=== PATIENT | male | born 2000 | race Caucasian/White ===

== ENCOUNTER 2021-10-24 07:38 | Outpatient (CLI) | payer OTHER, SELFPAY ==
--- NOTE | 2021-10-30 15:17 | WPDHOMESLEEP ---
Sleep Study - Home Unattended Date of Study: 10/24/21 Ordering Provider: Leah Mccray DO Interpreting Provider: Leah Mccray DO Home Sleep Study Type: Apnea Link Air Height: 1.88 m Weight: 113.398 kg Body Mass Index: 32.1 Neck Circumference (inches): 16.5 [place]: 7 Reason for Sleep Study Unrefreshing sleep, daytime hypersomnia, Morning headaches Sleep History The patient is a 21-year-old male that had a home sleep test ordered by his primary care physician due to unrefreshing sleep and daytime hypersomnia. 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 The patient's father and grandfather both have sleep apnea and uses CPAP. The patient denies awakening from sleep short of breath. He denies awakening at night with heartburn, belching or cough. He constantly snores loud enough that others complain. He rarely has trouble sleeping when he has a cold. He denies waking up gasping for air throughout the night. He constantly has breathing problems at night observed by others. He occasionally sweats excessively at night. He denies noticing heart palpitations or irregular heartbeats during the night. He rarely falls asleep during the day and never while driving. He denies sleep paralysis and cataplexy. He rarely experiences vivid dreamlike scenes upon awakening or falling asleep. He denies having nightmares. He rarely feels sad or depressed. He rarely has anxiety. He denies noticing parts of his body jerk. He denies kicking during the night. He occasionally has crawling and aching feelings in his legs as well as leg pain during the night. He denies grinding his teeth during sleep awakening with any jaw pain. He occasionally is bothered by pain during the day but rarely awakened by pain during the night. He occasionally wakes up feeling stiff in the morning with sore or achy muscles. He occasionally wakes up with pain in the neck, spine or other joints. He goes to bed at 10:30 p.m. a weekdays and 11:30 p.m. on the weekends. It takes him 10-30 minutes to fall asleep. He wakes up 2-3 times per night to urinate, turn on the fan or move to the couch. He is able to fall back asleep within 10 minutes. He wakes up between 5 and 6:00 a.m. on weekdays and between 6 and 7:00 a.m. on the weekends. He typically gets between 7 and 8 hours of sleep per night. He will not stay in bed after waking up in the morning. He currently lives with his girlfriend. He denies consuming any caffeinated beverages within 2 hours of bedtime. He does not engage in physical exercise before bedtime. He will watch television before falling asleep. He does not take naps in the afternoon or the evening. He currently smokes cigars and vapes as well as using marijuana. He does consume alcohol. [facility] Past Medical History Medical History (Updated 10/30/21 @ 15:32 by Leah Mccray DO) Morning headache Surgical History Surgical History (Updated 08/09/21 @ 14:57 by Rhoda Montiel CMA) History of appendectomy 2019 Family History Family History (Updated 08/09/21 @ 14:58 by Rhoda Montiel CMA) Sibling Depression Grandparent Alcoholism Diabetes mellitus Heart disease Social History Social History (Updated 08/09/21 @ 15:03 by Rhoda Montiel CMA) Smoking status: Current every day smoker Tobacco type: cigars and e-cigarettes/vaping Alcohol intake: current Substance use: current Substance use type: marijuana Medications Home Medications Medication Instructions Recorded Confirmed Type No Home Medications 08/09/21 History Sleep Procedure This test was performed using 4 channel monitoring including respiratory effort channel, snoring channel, heart rate channel, and oxygen saturation channel. This study was scored using [facility] guidelines. Sleep Architecture The patient had a total recording time of 8 hours 10 minutes and total monitoring time of 7 hours 35 minutes. The patient spent 6 hours 17 minut
[2021-10-30 15:33] VITALS: BMI 32.1
== END 2021-10-25 12:01 | disposition home or self-care (01) ==
LOC: ANHCSM 07:38
PROVIDERS: PCP Family Medicine; Visit Provider Family Medicine
DX: R06.83 Snoring (principal); G47.33 Obstructive sleep apnea (adult) (pediatric)
CPT/HCPCS: 95806

== ENCOUNTER 2022-11-24 07:19 | Outpatient (CLI) | payer OTHER, SELFPAY ==
[2022-11-24 08:10] LABS: Basophils Percent Auto 0.8 % (0.2-1.2); Eosinophils Absolute Auto 0.2 K/mm3 (0-0.3); Eosinophils Percent Auto 5.5 % (0-4.4); Hematocrit 46.1 % (42.0-52.0); Hemoglobin 15.6 g/dL (14.0-18.0); Immature Granulocyte Absolute 0.04 K/mm3 (0.00-0.031); Lymphocytes Absolute Auto 1.43 K/mm3 (0.9-3.2); Lymphocytes Percent Auto 37.5 % (18.3-44.2); Mean Corpuscular HGB Conc 33.8 g/dl (32-36); Mean Corpuscular Hemoglobin 29.1 pg (26-34); Mean Corpuscular Volume 85.8 fl (80-100); Mean Platelet Volume 10.8 fl (7.4-10.4); Monocytes Absolute Auto 0.3 K/mm3 (0.1-0.6); Monocytes Percent Auto 8.9 % (2.6-8.5); Neutrophils Absolute Auto 1.8 K/mm3 (1.3-6.7); Neutrophils Percent Auto 46.3 % (45.5-73.1); Platelet Count Result 264 k/mm3 (150-375); Red Blood Count 5.37 M/mm3 (4.6-6.20); Red Cell Distribution Width 12.3 % (11.5-14.5); White Blood Count 3.8 K/mm3 (4.5-10.0)
[2022-11-24 08:11] LABS: Hemoglobin A1C 5.4 % (<5.7)
[2022-11-24 08:13] LABS: Alanine Aminotransferase 64 U/L (6-50); Albumin Level 4.6 g/dL (3.5-5.1); Alkaline Phosphatase 66 U/L (38-126); Anion Gap 8 mmol/L (8-16); Aspartate Amino Transferase 44 U/L (17-59); Bilirubin,Total 0.8 mg/dL (0.2-1.3); Blood Urea Nitrogen 12 mg/dL (9-20); Calcium 9.1 mg/dL (8.4-10.2); Carbon Dioxide 27 mmol/L (22-30); Chloride 104 mmol/L (98-107); Cholesterol 221 mg/dL (0-200); Estimated Glomerular Filt Rate > 60; Glucose 104 mg/dL (65-110); HDL Direct 57 mg/dL; Potassium 4.3 mmol/L (3.4-5.0); Sodium 139 mmol/L (137-145); Triglycerides 75 mg/dL (<150)
[2022-11-24 08:24] LABS: LDL Cholesterol Direct 121 mg/dL
[2022-11-24 14:20] LABS: Free T4 Free Thyroxine 1.02 ng/mL (0.78-2.19); Vitamin D 25 Hydroxy 49.4 ng/mL
== END 2022-11-24 07:20 | disposition home or self-care (01) ==
PROVIDERS: PCP Family Medicine; Visit Provider Family Medicine
DX: E55.9 Vitamin D deficiency, unspecified (principal); R53.83 Other fatigue; R73.9 Hyperglycemia, unspecified; Z13.220 Encounter for screening for lipoid disorders
CPT/HCPCS: 36415; 80053; 80061; 82306; 83036; 84439; 84443; 85025

== ENCOUNTER 2023-02-15 15:57 | Emergency (ER) | payer OTHER, SELFPAY ==
--- NOTE | ~2023-02-15 | XR_ITS ---
EXAM: XR hand RT min 3V DATE: 02/15/2023 16:16 HISTORY: Laceration to palmar surface of right hand. R/O FB . COMPARISON: None available. FINDINGS: Normal mineralization. No fracture or dislocation. No lytic or blastic lesion. Joint space s are maintained. No erosion or periosteal change. Soft tissues within normal limits. IMPRESSION: No acute osseous finding in the right hand. Reviewed, dictated and finalized at location K.
--- NOTE | 2023-02-15 16:03 | ED.WOUNDLAC ---
HPI - Wound/Laceration General Chief Complaint: Wound/Laceration Stated Complaint: cut hand Time Seen by Provider: 02/15/23 16:02 Source: patient Mode of arrival: ambulatory Limitations: no limitations History of Present Illness HPI narrative: Tra is a 23-year-old male patient presenting presenting to the clinic today with complaints of a puncture wound/laceration to the right hand. He reports he cut his hand on a ground heron (piece of rebar) while at work. Bleeding is controlled. Has flap laceration to the volar aspect of the right hand and a puncture wound to the dorsal hand. Patient feels as though he is going to pass out and is diaphoretic and pale at the time of her arrival. Related Data Allergies Allergy/AdvReac Type Severity Reaction Status Date / Time No Known Allergies Allergy Verified 02/15/23 16:19 Review of Systems Review of Systems: Pertinent positives per HPI. Patient denies any fever, chills, rash, headache, visual changes, dizziness, cough, runny nose, sore throat, shortness of breath, chest pain, palpitations, nausea, vomiting, diarrhea, constipation, abdominal pain, or any urinary issues. [facility] Past Medical History Medical History Morning headache Surgical History Surgical History History of appendectomy 2019 Family History Family History Sibling Depression Grandparent Alcoholism Diabetes mellitus Heart disease Cerebrovascular accident Social History Social History Smoking status: Former smoker Tobacco type: cigarettes, cigars and e-cigarettes/vaping Smoking end date: 10/31/22 Alcohol intake: current Substance use: never Lack of Transportation: No Lack of Food: Never True Current Housing: I Have Housing Concerned About Future Housing: No Difficulty Paying Gas/Electric Bills: No Difficulty Paying for Meds: No Currently Unemployed: No Education: High School Diploma/GED Difficulty w/ Childcare or Family Care: No Comments At the time of my signature, I reviewed and agree with the nursing past medical, surgical, social, and family history. There is no relevant family history pertinent to the patient complaint. Exam Narrative: General: Well-developed, well nourished, in no apparent distress Head: Normocephalic, atraumatic. Cardio: Regular rate and rhythm, s1 and s2 normal, no murmur appreciated. Resp: Clear to auscultation bilaterally, no rhonchi, rales, wheezing or rubs. Musculoskeletal: No deformity, tender to palpation over the webbing in between the right thumb and index finger on the right hand, grossly normal range of motion of thumb and index finger, able to flex and extend against resistance without weakness, muscle strength strong and equal, peripheral pulse strong, no edema, no cyanosis, normal gait and station Integumentary: Bridger, warm, and dry, open puncture/flap laceration to the volar aspect of the right hand in between the right thumb and index finger measuring 2x2 and 1.5 cm vertical laceration dorsal laceration Course Course Emergency Course: Portions of this record may have been created with voice recognition software. Level of Care: Express Care Visit Vital Signs Vital signs: Vital signs reviewed Procedures Laceration Laceration 1: Date: 02/15/23 Site: hand Side (If applicable): right (dorsal) Size (cm): 1.5 Description: linear Depth: simple, single layer Local Anesthetic: lidocaine 2% Amount of anesthesia used (mL): 2 Pre-repair: wound explored, irrigated and irrigated extensively ====== Skin Level ====== Skin layer closed with: nylon Size (cm): 4-0 Number of sutures: 3 Technique: simple
[2023-02-15 16:16] VITALS: BP 139/61; PULSE 87; RESP 18; O2SAT 100
[2023-02-15] MEDS: TETANUS,DIPHTHERIA,AC PERTUSSIS ADULT (0.5 ML) BOOSTRIX IM (16:34)
== END 2023-02-15 17:28 | disposition home or self-care (01) ==
PROVIDERS: Emergency Provider Nurse Practitioner Family; PCP Family Medicine
DX: S61.411A Laceration without foreign body of right hand, initial encounter (principal); W45.8XXA Other foreign body or object entering through skin, initial encounter; F17.210 Nicotine dependence, cigarettes, uncomplicated; F17.290 Nicotine dependence, other tobacco product, uncomplicated; Z23 Encounter for immunization
CPT/HCPCS: 12002; 73130; 90471; 90715; 99213; G0463

== ENCOUNTER 2023-05-20 08:50 | Emergency (ER) | payer OTHER, SELFPAY ==
--- NOTE | 2023-05-20 08:54 | ED.EAR ---
HPI - Ear Problem General Chief complaint: Ear Stated complaint: Ear infection Time Seen by Provider: 05/20/23 08:54 Source: patient Mode of arrival: ambulatory Limitations: no limitations History of Present Illness HPI Narrative: Patient is a 23-year-old male who presents with almost a month of bilateral ear pain. Patient has been taking Zyrtec and Claritin with only mild relief of symptoms. Denies any congestion, sore throat, cough, fever, chills, nausea, vomiting, diarrhea. MD Complaint: ear pain Related Data Allergies Allergy/AdvReac Type Severity Reaction Status Date / Time No Known Allergies Allergy Verified 05/20/23 08:53 Review of Systems Review of Systems: All systems reviewed & are unremarkable except as noted in HPI and below Constitutional: Constitutional: Denies body ache(s), Denies chills, Denies fever(s), Denies headache(s) and Denies malaise Eyes: Eyes: Denies blurry vision, Denies eye discharge and Denies irritation ENT: Reports otalgia, Denies headache(s), Denies nasal congestion, Denies nasal discharge and Denies sore throat Cardiovascular: Cardiovascular: Denies chest pain, Denies edema, Denies palpitations and Denies dyspnea on exertion Respiratory: Respiratory: Denies cough and Denies dyspnea on exertion Gastrointestinal: Gastrointestinal: Denies abdominal pain, Denies diarrhea, Denies nausea and Denies vomiting Musculoskeletal: Musculoskeletal: Denies back pain, Denies arthralgias and Denies muscle weakness Integumentary/Breasts: Skin/Breast: Denies pruritus and Denies rash Neurologic: Denies headache(s) Psychiatric: Psychiatric: Reports no additional psychiatric complaints Endocrine: Endocrine: Denies palpitations PMFSH Past Medical History Medical History Morning headache Surgical History Surgical History History of appendectomy 2019 Family History Family History Sibling Depression Grandparent Alcoholism Diabetes mellitus Heart disease Cerebrovascular accident Social History Social History Smoking status: Former smoker Tobacco type: cigarettes, cigars and e-cigarettes/vaping Smoking end date: 10/31/22 Alcohol intake: current Substance use: never Lack of Transportation: No Lack of Food: Never True Current Housing: I Have Housing Concerned About Future Housing: No Difficulty Paying Gas/Electric Bills: No Difficulty Paying for Meds: No Currently Unemployed: No Education: High School Diploma/GED Difficulty w/ Childcare or Family Care: No Comments At time of signature, agree with nursing past medical, surgical, social and family history. There is no relevant family history pertinent to the presenting complaint? Exam Const: General: cooperative, healthy appearing, no acute distress and well nourished Nutritional Appearance: well nourished Orientation/consciousness: patient oriented x3 Limitations: no limitations HENMT: Head: normal to inspection, normocephalic and atraumatic Ears: hearing grossly normal bilaterally, TM normal on the left, EAC's normal, no periauricular adenopathy and TM abnormal bulging on the right and erythematous on the right Face/Nose/Sinus: Normal external nose present, Normal nares present, Normal nasal mucous membranes and turbinates present, No nasal discharge present, normal facial exam and sinuses nontender Face and sinus: normal facial exam and sinuses nontender Mouth: Yes Normal oral and palatal mucosa present, Yes lip normal, Yes tongue normal and Yes moist mucous membranes Throat: posterior oropharynx normal, tonsils normal and uvula midline Eyes: General: appearance normal, both eyes and all related structures Alignment and Position: alignment normal and position normal Eyelids: eyelids
[2023-05-20 08:58] VITALS: BP 131/86; PULSE 78; RESP 16; TEMP 36.5; O2SAT 99
== END 2023-05-20 09:07 | disposition home or self-care (01) ==
PROVIDERS: Emergency Provider Nurse Practitioner Family; PCP Family Medicine
DX: H66.001 Acute suppurative otitis media without spontaneous rupture of ear drum, right ear (principal); Z87.891 Personal history of nicotine dependence
CPT/HCPCS: 99213; G0463

== ENCOUNTER 2023-06-10 08:04 | Emergency (ER) | payer OTHER, SELFPAY ==
--- NOTE | 2023-06-10 08:17 | ED.EAR ---
HPI - Ear Problem General Chief complaint: Ear Stated complaint: Ear Infection Time Seen by Provider: 06/10/23 08:20 Source: patient Mode of arrival: ambulatory Limitations: no limitations History of Present Illness HPI Narrative: Tra is a 23-year-old male patient presenting to the clinic today with complaints of right-sided ear pain since the beginning of May. He reports he finished amoxicillin on May 31 however he is still having ear pain and decreased hearing in the right ear. He denies any fever or chills. Related Data Allergies Allergy/AdvReac Type Severity Reaction Status Date / Time No Known Allergies Allergy Verified 06/10/23 08:10 Review of Systems Review of Systems: Pertinent positives per HPI. Patient denies any fever, chills, rash, headache, visual changes, dizziness, cough, runny nose, sore throat, shortness of breath, chest pain, palpitations, nausea, vomiting, diarrhea, constipation, abdominal pain, or any urinary issues. PMFSH Past Medical History Medical History Morning headache Surgical History Surgical History History of appendectomy 2019 Family History Family History Sibling Depression Grandparent Alcoholism Diabetes mellitus Heart disease Cerebrovascular accident Social History Social History Smoking status: Former smoker Tobacco type: cigarettes, cigars and e-cigarettes/vaping Smoking end date: 10/31/22 Alcohol intake: current Substance use: never Lack of Transportation: No Lack of Food: Never True Current Housing: I Have Housing Concerned About Future Housing: No Difficulty Paying Gas/Electric Bills: No Difficulty Paying for Meds: No Currently Unemployed: No Education: High School Diploma/GED Difficulty w/ Childcare or Family Care: No Comments At the time of my signature, I reviewed and agree with the nursing past medical, surgical, social, and family history. There is no relevant family history pertinent to the patient complaint. Exam Narrative: General: Well-developed, well nourished, in no apparent distress Head: Normocephalic, atraumatic Eyes: Pupils equally round and reactive to light bilaterally, EOM intact, sclera and conjunctive clear, no discharge, lids normal Ears: Left tMs intact and clear, right TM intact, bulging, red, left ear canal clear, right ear canal swollen red, with white otorrhea, decreased hearing in the right ear Nose: Nares patent, no discharge, no inflammation, no sinus tenderness. Mouth: Oropharynx without lesions or masses, good dentition, MMM. Neck: Supple, trachea midline, no enlargement of anterior or posterior cervical nodes, no thyroid masses or goiter palpable. Cardio: Regular rate and rhythm, s1 and s2 normal, no murmur appreciated. Resp: Clear to auscultation bilaterally anteriorly and posteriorly, no rhonchi, rales, wheezing or rubs Course Course Emergency Course: Portions of this record may have been created with voice recognition software. Level of Care: Express Care Visit Vital Signs Vital signs: Vital Signs Temperature 36.6 C 06/10/23 08:19 Pulse Rate 69 06/10/23 08:19 Respiratory Rate 16 06/10/23 08:19 Blood Pressure 127/81 06/10/23 08:19 Pulse Oximetry 100 06/10/23 08:19 Temperature 36.6 C 06/10/23 08:19 Pulse Rate 69 06/10/23 08:19 Respiratory Rate 16 06/10/23 08:19 Blood Pressure 127/81 06/10/23 08:19 Pulse Oximetry 100 06/10/23 08:19 Vital signs reviewed Medical Decision Making MDM Narrative Medical decision making narrative: At the time of visit patient is resting comfortably on the exam table. I suspect patient has otitis externa and otitis media the right ear. Will send in prescript
[2023-06-10 08:19] VITALS: BP 127/81; PULSE 69; RESP 16; TEMP 36.6; O2SAT 100
== END 2023-06-10 08:26 | disposition home or self-care (01) ==
PROVIDERS: Emergency Provider Nurse Practitioner Family; PCP Family Medicine
DX: H66.001 Acute suppurative otitis media without spontaneous rupture of ear drum, right ear (principal); H60.311 Diffuse otitis externa, right ear; Z87.891 Personal history of nicotine dependence
CPT/HCPCS: 99213; G0463

== ENCOUNTER 2024-10-26 13:04 | Emergency (ER) | payer SELFPAY ==
--- NOTE | ~2024-10-26 | XR_ITS ---
HISTORY: Anterior pain, 1 month, decreased range of motion COMPARISON: None TECHNIQUE: 3 views of the left shoulder were performed FINDINGS: No acute fracture. The glenohumeral and acromioclavicular joint space is maintained The visualized portion of the adjacent left lung is clear. The humeral head is well seated within the glenoid fossa. IMPRESSION: No acute fracture or anterior dislocation. Reviewed, dictated and finalized at location A. UNTING MACHINE SERVICER
--- NOTE | 2024-10-26 13:26 | ED.UPPEXIN ---
HPI - Extremity Injury (Upper) General Chief Complaint: Extremity Injury, Upper Stated Complaint: LT Shoulder Injury Time Seen by Provider: 10/26/24 13:38 Source: patient, RN notes reviewed and old records reviewed Mode of arrival: ambulatory Limitations: no limitations History of Present Illness HPI narrative: 24-year-old male presents to the [facility] with complaints of anterior left shoulder pain. Patient states that he was working above his head today when his shoulder would not go above 90?. States he has had discomfort in the shoulder for about 1 month. Denies taking anything for the discomfort. Denies any specific injury. States he does do a lot of overhead work. Related Data Home Medications ?Medication ?Instructions ?Recorded ?Confirmed ?Last Taken ?Type No Home Medications 10/26/24 10/26/24 Unknown History Allergies Allergy/AdvReac Type Severity Reaction Status Date / Time No Known Allergies Allergy Verified 10/26/24 13:39 Review of Systems Review of Systems: All systems reviewed & are unremarkable except as noted in HPI and below Constitutional: Constitutional: Reports no additional constitutional complaints ENT: Reports system reviewed and no additional complaints, except as documented Cardiovascular: Cardiovascular: Reports no additional cardiovascular complaints, Denies chest pain and Denies dyspnea Respiratory: Respiratory: Reports no additional respiratory complaints, Denies chest congestion, Denies cough and Denies dyspnea Musculoskeletal: Musculoskeletal: Reports as per HPI and Reports arthralgias (Anterior left shoulder) Integumentary/Breasts: Skin/Breast: Reports system reviewed and no additional complaints, except as docu PMFSH Past Medical History Medical History Morning headache Surgical History Surgical History History of appendectomy 2019 Family History Family History Sibling Depression Grandparent Alcoholism Diabetes mellitus Heart disease Cerebrovascular accident Social History Social History Smoking status: Former smoker Tobacco type: cigarettes, cigars and e-cigarettes/vaping Smoking end date: 10/31/22 Alcohol intake: current Substance use: never Lack of Transportation: No Lack of Food: Never True Current Housing: I Have Housing Concerned About Future Housing: No Difficulty Paying Gas/Electric Bills: No Difficulty Paying for Meds: No Currently Unemployed: No Education: High School Diploma/GED Difficulty w/ Childcare or Family Care: No Comments At the time of my signature, I reviewed and agree with the nursing past medical, surgical, social, and family history. There is no relevant family history pertinent to the patient complaint. Exam Const: General: cooperative, healthy appearing, comfortable, no acute distress, well developed, alert and well nourished Nutritional Appearance: well nourished and obese Orientation/consciousness: patient oriented x3 Limitations: no limitations HENMT: Head: normal to inspection Eyes: General: appearance normal, both eyes and all related structures Alignment and Position: alignment normal Neck: Neck: normal visual inspection, full ROM, no lymphadenopathy and no meningeal signs Chest: Chest palpation & inspection: normal inspection of the chest Resp: Effort & Inspection: normal respiratory effort and able to speak in complete sentences Cardio: Rate: regular rate Skin: General skin exam: normal color and no rashes or lesions noted Neuro: General: patient oriented x3, gait normal, moves all extremities and no meningeal signs Cognition (Neuro): normal cognition Speech: normal speech Gait exam (Neuro): Normal gait present Extrem: General: normal to inspection, full ROM, capillary refill normal and normal gait Left upper extremity: shoulder/upper arm tenderness (Tenderness anterior); no abrasions, no lacerations, no ecchymosis and no deformity, elbow/forearm normal to inspection and normal ROM, wrist normal to inspection and normal ROM and hand normal to inspection, normal capillary refill, neuromotor exam normal Details: wrist extension normal, thumb opposition normal, thumb IP flexion normal, thumb ADduction normal and fingers 2-5 ABduction normal, vascular exam radial pulse present and normal capillary refill, normal ROM of fingers and no swelling Psych: Appearance: grossly normal and well kempt Mental Status: mental status grossly normal Speech and movement: Normal speech and movement present and Clear speech present Affect: normal affect Attitude: cooperative Course Course Level of Care: [facility] Care Visit Vital Signs Vital signs: Vital Signs Temperature 97.9 F 10/26/24 13:28 Pulse Rate 82 10/26/24 13:28 Respiratory Rate 18 10/26/24 13:28 Blood Pressure 143/80 H 10/26/24 13:28 Pulse Oximetry 99 10/26/24 13:28 Oxygen Delivery Room Air 10/26/24 13:28 Temperature 97.9 F 10/26/24 13:28 Pulse Rate 82 10/26/24 13:28 Respiratory Rate 18 10/26/24 13:28 Blood Pressure 143/80 H 10/26/24 13:28 Pulse Oximetry 99 10/26/24 13:28 Oxygen Delivery Room Air 10/26/24 13:28 Reviewed MDM - Extremity Injury (Upper) MDM Narrative Medical decision making narrative: Patient sitting comfortably in exam room. Nontoxic, vitals stable. Patient in no acute distress. Patient presents with 1 month history that was worse today of left shoulder discomfort. Decreased range of motion. X-ray showed no acute findings Patient appropriate for outpatient treatment with close follow-up with either primary or Ortho for further evaluation Discharge instructions reviewed with patient, as well as provided in writing per nursing staff. The instructions also include specific and strict return/GO TO THE ER as well as f/u information. All questions have been answered, and the patient deny any further questions with discharge and discharge plan. Some parts of this dictation were generated by voice recognition software and may contain typographical and/or grammatical inaccuracies. Differential Diagnosis Differential diagnosis: Likely other (Contusion, ligament, impingement, arthritis,) Imaging Data Radiologist's impression: Procedure(s): XR shoulder LT min 2V Accession Number(s): [id number] cc: HOSPITALIST NOCTURNIST PHYSICIAN PHYSICIAN; Jaqui Knox APRN~ HISTORY: Anterior pain, 1 month, decreased range of motion COMPARISON: None TECHNIQUE: 3 views of the left shoulder were performed FINDINGS: No acute fracture. The glenohumeral and acromioclavicular joint space is maintained The visualized portion of the adjacent left lung is clear. The humeral head is well seated within the glenoid fossa. IMPRESSION: No acute fracture or anterior dislocation. Critical Care Time Critical Care Time Critical Care Time: No Discharge Plan Discharge Clinical Impression: Left anterior shoulder pain Patient Disposition: Home, Self-Care Condition: Stable Instructions: Antibiotic Form, Shoulder Pain (ED) Additional Instructions: Your Xray did not show a fracture or dislocation. Ice should be applied to help reduce swelling. It can be used for 20 to 30 minutes, every 2-3 hours while awake. Do not apply ice directly to your skin. You can alternate ibuprofen 600mg and Tylenol 650mg every 4 hours as needed for pain Please schedule a follow-up visit with your personal physician for further evaluation and treatment within 2 weeks especially if symptoms persist. Today your blood pressure was 143/80. Is important to follow-up with primary care provider to have this rechecked. If you are having a hard time finding a physician please call our [facility] group liaison at [phone]. For new or worsening symptoms go directly to the emergency room Patient Language: [place] Prescriptions: No Action No Home Medications Follow-up/Referrals: PHYSICIAN,HOSPITALIST NOCTURNIST PHYSICIAN [Primary Care Provider] - Francis Nielsen MD [Physician] - Stand Alone Forms: Work/School Release IP Time of Disposition: 14:06
[2024-10-26 13:28] VITALS: BP 143/80; PULSE 82; RESP 18; TEMP 36.6; O2SAT 99
--- OUTSIDE RECORDS SUMMARY | 2024-10-26 14:53 | XMS_ITS | Encounter Summary ---
Author Organization [facility] Address [address] [place] [id number] Care Team Providers Care Donation Worker Name Role Phone Benji Obrien MD Primary Care Provider [phone] None, Provider Primary Care Provider Unavaila ble Reason for Visit * Reason Onset Date Comments Follow Up Call 09/03/2019 Encounter Details Date Type Department Care Team (Late st Contact Info) Description 09/03/2019 Telephone [facility] Med/Surg [address] [place] [address] Amy Yepez CNA Follow Up Call Social History Tobacco Use Types Packs/Day Years Used Date Smoking Tobacco: Never Smokeless Tobacco: Never Alcohol Use Standard Drinks/Week Comments Yes 0 (1 standard drink = 0.6 oz pur e alcohol) socially Sex and Gender Information Value Date Recorded Sex Assigned at Male 09/30/2024 4:[address] WORKER Legal Sex Male 5:46 PM CDT Gender Identity Male 10/08/2024 1:[address] WORKER Sexual Orientation Not on file Occupation Industry Job Start Date Job End Date student Not on file Not on file Not on file documented as of this encounter Functional Status * RETIRED Are you deaf or do you have serious difficulty hearing Answer Date of Assessment Author Status No 09/02/2019 3:[address] WORKER Activ e * RETIRED Are you blind or do you have serious difficulty seeing, even when wearing glasses? Answer Date of Assessment Author Status No 09/02/2019 3:[address] WORKER Activ e * Do you have serious difficulty walking or climbing stairs? Answer Date of Assessment Author Status No 09/02/2019 3:[address] WORKER Oma Domínguez RN Active * Do you have difficulty dressing or bathing? Answer Date of Assessment Author Status No 09/02/2019 3:[address] WORKER Oma Domínguez RN Active * Because of a physical, mental, or emotional condition, do you have difficulty doing errands alone such as visiting a doctor's office or shopping? Answer Date of Assessment Author Status No 09/02/2019 3:[address] WORKER Oma Domínguez RN Active documented as of this encounter Mental Status * Because of a physical, mental, or emotional condition, do you have serious difficulty concentrating, remembering, or making decisions? Answer Entry Date Author Status No 09/02/2019 3:[address] WORKER Oma Domínguez RN Active documented in this encounter Progress Notes * Amy Yepez CNA - 09/03/2019 2:20 PM CST Called patient and informed him of his follow up appointment with Dr. Up on 09/10 @ 7440. T WORKER documented in this encounter Plan of Treatment Not on file documented as of this encounter Visit Diagnoses Not on filedocumented in this encounter Care Teams Donation Worker Relationship Specialty [place] [address] [place] [address] PCP - General FAMILY PRACTICE 11/27/18 09/29/24 None, Provider, PCP - General UNKNOWN PHYSICIAN SPECIALTY 09/30/24 documented as of this encounter
--- OUTSIDE RECORDS SUMMARY | 2024-10-26 14:53 | XMS_ITS | Clinical Summary ---
Author Organization [facility] Address [address] [place] [address] Care Team Providers Care Nail Cutter Name Role Phone None, Provider MD Primary Care Provider Unavaila ble Allergies No known active allergies Medications Hospital, Clinic, or Other Facility Administered Medication Ordered Dose Route Frequency Start Date End Date Status triamcinolone acetonide (KENALOG-40) injection 40 mgIndications:Prepatellar bursitis of right knee,Right knee pain, unspecified chronicity 40 mg IX Once 10/08/2024 10/08/2024 En ded lidocaine (XYLOCAINE) 2 % injection 1 mLIndications:Prepatellar bursitis of right knee,Right knee pain, unspecified chronicity 1 mL Other Once 10/08/2024 10/08/2024 En ded Active Problems Problem Noted Date Diagnosed Date Acute appendicitis with loca lized peritonitis, without perforation, abscess, or gangrene 09/01/2019 S/P laparoscopic appendectomy 09/01/2019 Encounters Date Type Department Care Team Description 10/08/2024 2:00 PM TRANSMITTER ENGINEER Office Visit [facility] [address] [place] [address] Jefferson Cosme MD New Patient (Rt knee c/o fluid on knee ) 10/08/2024 Travel 10/01/2024 Telephone [facility] [address] [place] [address] Thom Pulido MD Appointment Request 09/30/2024 4:40 PM TRANSMITTER ENGINEER - 09/30/2024 6:05 PM TRANSMITTER ENGINEER Hospital Encounter [facility] [place] [address] Amparo Arzola DO Knee Pain Discharge Disposition: Home or Self Care (Routine Discharge) 09/30/2024 Travel from Last 3 Months Immunizations Name Administration Dates Next Due DTaP (Daptacel) 03/18/2001,1999,1999 ,1999 Dtap 02/26/2003 Hepatitis A (Generic) 02/15/2009,05/31/2008 Hepatitis B Pediatric 1999,1999,01/01 Hib (Generic) 03/18/2001,1999,1999 ,1999 Influenza (Generic) 07/07/2014,07/07/2008 MMR 02/26/2003,02/02/2000 Menactra 04/29/2016 Meningococcal 05/09/2010 Polio IPV (Ipol) 02/26/2003,05/07/2000, 9,1999 Tdap (Generic) 05/09/2010 Varicella Vaccine 05/31/2008,05/07/2000 Family History Medical History Relation Comments Heart Disease Paternal Uncle Relation Status Comments Father Alive Mother Alive Paternal Uncle Social History Tobacco Use Types Packs/Day Years Used Date Smoking Tobacco: Some Days Cigarettes Smokeless Tobacco: Never Tobacco Cessation:Ready to Q uit: Yes; Counseling Given: No Comments:Occas Alcohol Use Standard Drinks/Week Comments Yes 0 (1 standard drink = 0.6 oz pur e alcohol) socially 3/weekly PHQ-2 Answer Date Recorded Patient Health Questionnaire-2 Score 0 10/08/2024 Sex and Gender Information Value Date Recorded Sex Assigned at Male 09/30/2024 4:01 PM TRANSMITTER ENGINEER Legal Sex Male 5:46 PM CDT Gender Identity Male 10/08/2024 1:55 PM TRANSMITTER ENGINEER Sexual Orientation Not on file Occupation Industry Job Start Date Job End Date student Not on file Not on file Not on file Last Filed Vital Signs Vital Sign Reading Time Taken Comments Blood Pressure 115/64 10/08/2024 1:54 PM TRANSMITTER ENGINEER Pulse 68 10/08/2024 1:54 PM TRANSMITTER ENGINEER Temperature 36.4 C (97.5 F) 10/08/2024 1:54 PM TRANSMITTER ENGINEER Respiratory Rate 16 09/30/2024 4:43 PM TRANSMITTER ENGINEER Oxygen Saturation 99% 09/30/2024 4:43 PM TRANSMITTER ENGINEER Inhaled Oxygen Concentration - - Weight 121.6 kg (268 lb) 10/08/2024 1:54 PM TRANSMITTER ENGINEER Height 188 cm (6' 2 ) 10/08/2024 1:54 PM TRANSMITTER ENGINEER Body Mass Index 34.41 10/08/2024 1:54 PM TRANSMITTER ENGINEER Plan of Treatment Health Maintenance Due Date Last Done Comments Annual Physical 2002 Pneumococcal Vaccine: Pediatrics (0 to 5 Years) and At-Risk Patients (6 to 64 Years) (1 of 2 - PCV) 2005 HPV Vaccines (1 - Male 3-dose series) 2014 Hepatitis C 2017 DTaP, Tdap and Td Vaccines (7 - Td or Tdap) 05/09/2020 05/09/2010, 02/26/2003, 03/18/2001, Additional history exists COVID-19 Vaccine () 05/03/2024 Influenza Adult (#1) 2024 07/07/2014, 07/07/20 08 Hepatitis B Vaccines Completed 1999, 1999, 1999 Meningococcal Vaccine Completed 04/29/2016, 010 PHQ-2 (Physician Capac) Completed 10/08/2024 Meningococcal B Vaccine Aged Out No l onger eligible based on patient's age to complete this topic RSV Immunizations Under 20 Months Aged Out No longer eligible based on patient's age to complete this topic Procedures Procedure Name Priority Date/Time Associated Diagnosis Comments ARTHROCENTESIS MAJOR JOINT W/ ULTRASOUND GUIDANCE Routine 10/08/2024 2:00 PM TRANSMITTER ENGINEER Prepatellar bursitis of right knee Right knee pain, unspecified chronicity OUS GUIDE NEEDLE PLCMT ORTHO Routine 10/08/2024 1:57 PM TRANSMITTER ENGINEER Right knee pain, unspecified chronicity from Last 3 Months Results * ARTHROCENTESIS MAJOR JOINT W/ ULTRASOUND GUIDANCE (10/08/2024 2:00 PM TRANSMITTER ENGINEER) Jefferson Santizo MD - 10/08/2024 2:00 PM TRANSMITTER ENGINEER Jefferson Cosme MD 10/08/2024 2:31 PM *Lg Jt Arthrocentesis: R patellar bursa aspiration cortisone injection on 10/08/2024 2:00 PM Indications: joint swelling Details: 22 G needle, ultrasound-guided superior approach Medications: (40 mg triamcinolone mixed with 1 cc 2% lidocaine without epi) Aspirate: 25 mL bloody Outcome: tolerated well, no immediate complications Procedure, treatment alternatives, risks and benefits explained, specific risks discussed. Consent was given by the patient. Immediately prior to procedure a time out was called to verify the correct patient, procedure, equipment, customer support executive and site/side marked as required. Patient was prepped and draped in the usual sterile fashion. Jefferson Cosme MD PROCEDURE/MINOR SURGICAL ORDERA BLES Final Result * OUS GUIDE NEEDLE PLCMT ORTHO (10/08/2024 1:57 PM TRANSMITTER ENGINEER) Anatomical Region Laterality Modality Ultrasound 10/08/2024 1:56 PM TRANSMITTER ENGINEER Narrative 10/08/2024 1:56 PM TRANSMITTER ENGINEER This report does not contain a radiologist's interpretation. Please review associated procedure and/or operative report. Procedure Note Miriam Marques MD - 10/08/2024 This report does not contain a radiologist's interpretation. Please review associated procedure and/or operative report. Jefferson Cosme MD ULTRASOUND Final Result from Last [address] [place] [id number] [facility] Advance Directives * Full Code (Latest Code Status on File) Date Activated Date Inactivated Comments 09/01/2019 4:47 PM 09/02/2019 7:45 PM Care Teams Nail Cutter Relationship Specialty Start Date End Date None, Provider, PCP - General UNKNOWN PHYSICIAN SPECIALTY 09/30/24
== END 2024-10-26 14:12 | disposition home or self-care (01) ==
PROVIDERS: Emergency Provider Nurse Practitioner
DX: M25.512 Pain in left shoulder (principal); Z87.891 Personal history of nicotine dependence
CPT/HCPCS: 73030; 99213; G0463